=== PATIENT | male | born 1995 | race American Indian/Alaskan Native ===

== ENCOUNTER 2019-06-15 10:30 | Emergency (ER) | payer SELFPAY ==
[2019-06-15 11:44] LABS: Bilirubin,Urine NEG (Negative); Blood,Urine NEG (Negative); Color,Urine Yellow (Yellow); Hyaline Casts,Urine 2 /LPF; Mucus,Urine 2+ /HPF
[2019-06-15 11:50] LABS: Amphetamine Screen,Urine PRESUMPTIVE NEGATIVE; Benzodiazepines Screen,Urine PRESUMPTIVE NEGATIVE; Cocaine Screen,Urine PRESUMPTIVE NEGATIVE; Methadone Screen,Urine PRESUMPTIVE NEGATIVE; Opiate Screen,Urine PRESUMPTIVE NEGATIVE
[2019-06-15 12:11] LABS: Cannabinoid Screen,Urine PRESUMPTIVE POSITIVE
[2019-06-15] MEDS ORDERED: LIDOCAINE (1%) 10 MG/1 ML VIAL 20 ML MDV INFILTRATI ONE (12:15)
[2019-06-15] MEDS ORDERED: TETANUS,DIPH,PERTUSS(ACELL) VACCINE 0.5 ML SYRINGE IM ONE (12:15)
[2019-06-15 12:24] LABS: Basophils % (Auto) 0.5 % (0.0-1.8); Eosinophils % (Auto) 0.2 % (0.0-4.3); Hematocrit 43.3 % (35.5-45.6); Hemoglobin 15.4 gm/dl (11.8-15.2); Lymphocytes # (Auto) 0.8 K/mm3 (1.2-5.4); Mean Corpuscular HGB Conc 36 % (32-34); Mean Corpuscular Volume 83 fl (84-94); Monocytes # (Auto) 0.5 K/mm3 (0.0-0.8); Monocytes % (Auto) 6.6 % (0.0-7.3); Platelet Count 213 K/mm3 (140-440); Red Blood Count 5.22 M/mm3 (3.65-5.03); Red Cell Distribution Width 13.7 % (13.2-15.2)
[2019-06-15 12:46] LABS: BUN/Creatinine Ratio 15; Blood Urea Nitrogen 12 mg/dL (9-20); Calcium 9.6 mg/dL (8.4-10.2); Hemolysis Index 13
--- NOTE | 2019-06-15 13:22 | XRay Report ---
XR wrist 3+V LT INDICATION / CLINICAL INFORMATION: Left wrist pain after injury. COMPARISON: None available. FINDINGS: BONES/JOINT(S): There is a mildly displaced and potentially comminuted fracture of the mid to distal scaphoid waist. There is no other acute fracture or subluxation. SOFT TISSUES: No significant abnormality. ADDITIONAL FINDINGS: None. Signer Name: Robin Hazel MD Signed: 06/15/2019 1:18 PM Workstation Name: [id number]
--- NOTE | 2019-06-15 13:23 | XRay Report ---
XR foot 3+V RT INDICATION / CLINICAL INFORMATION: Right foot pain after injury. COMPARISON: None available. FINDINGS: BONES/JOINT(S): No acute fracture or subluxation. No significant degenerative changes. SOFT TISSUES: There is partial avulsion of the toe nail in the great toe. ADDITIONAL FINDINGS: None. Signer Name: Robin Hazel MD Signed: 06/15/2019 1:19 PM Workstation Name: [id number]
[2019-06-15] MEDS ORDERED: SODIUM CHLORIDE IRRI 500 ML 500 ML IR ONE (13:26)
[2019-06-15] MEDS ORDERED: SODIUM CHLORIDE 0.9% IRR 500 ML BOTTLE IR ONE (14:49)
[2019-06-15] MEDS: cephALEXin 500 MG CAP PO SCH ×2 (15:04→19:18)
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
[2019-06-15] MEDS ORDERED: NEOMY 3.5 MG/BACIT 400 UNITS/POLY B 5000 UNITS/GM OINT PACKET TP ONE ×2 (20:59)
[2019-06-16] MEDS: cephALEXin 500 MG CAP PO SCH ×2 (01:03→06:27)
[2019-06-16 09:14] VITALS: BP 135/84
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
[2019-06-16] MEDS ORDERED: IBUPROFEN 800 MG TAB ONE (10:54)
[2019-06-16] MEDS ORDERED: IBUPROFEN 800 MG TAB PO ONE (10:57)
== END 2019-06-16 12:15 ==
LOC: ED 10:30
DX: S62.002A Unspecified fracture of navicular [scaphoid] bone of left wrist, initial encounter for closed fracture (principal); S91.201A Unspecified open wound of right great toe with damage to nail, initial encounter; T14.8XXA Other injury of unspecified body region, initial encounter; F32.9 Major depressive disorder, single episode, unspecified; R45.851 Suicidal ideations; F17.200 Nicotine dependence, unspecified, uncomplicated; F12.90 Cannabis use, unspecified, uncomplicated; Z79.899 Other long term (current) drug therapy; X83.8XXA Intentional self-harm by other specified means, initial encounter; Y93.39 Activity, other involving climbing, rappelling and jumping off; Y92.89 Other specified places as the place of occurrence of the external cause; Y99.8 Other external cause status
CPT/HCPCS: 36415; 80048; 80307; 80320; 81001; 85025; 90471; 90715; A6250; G0480